=== PATIENT | male | born 1965 | race Caucasian/White ===

== ENCOUNTER 2016-11-05 05:54 | Day surgery (SDC) | payer OTHER ==
[~2016-11-05] VITALS: Ht 170.2 cm; Wt 79.5 kg
[~2016-11-05 05:54] MED LIST: ASPI-1093 PO; ATOR20TA86 PO; CLOP75 PO; FentaNYL CITRATE-PF 100 MCG/2 ML VIAL IVP ONE; HYDR25TA PO; LISI-662 PO; METF500T4 PO; MIDAZOLAM HCL 2 MG/2 ML VIAL IVP ONE; NITR.4 SL
[2016-11-05] MEDS ORDERED: DICLOFENAC SODIUM 0.1% 2.5 ML OPHTHALMIC SOLUTION ONE (06:07)
[2016-11-05] MEDS ORDERED: TROPICAMIDE 1% 2 ML OPHTHALMIC SOLUTION ONE (06:08)
[2016-11-05] MEDS ORDERED: PHENYLEPHRINE HCL 2.5% 2 ML OPHTHALMIC SOLUTION ONE (06:08)
[2016-11-05] MEDS ORDERED: TETRACAINE HCL 0.5% 2 ML OPHTHALMIC SOLUTION ONE (06:08)
[2016-11-05] MEDS ORDERED: GATIFLOXACIN 0.5% 2.5 ML OPHTHALMIC SOLUTION ONE (06:08)
[2016-11-05] MEDS ORDERED: RINGERS SOLUTION,LACTATED 500 ML IV ONE ×2 (06:09→06:45)
[2016-11-05] MEDS ORDERED: ACETAMINOPHEN 325 MG TABLET PO PRN (06:15)
[2016-11-05] MEDS ORDERED: TETRACAINE HCL 0.5% 2 ML OPHTHALMIC SOLUTION OS ONE ×2 (06:15→16:45)
[2016-11-05 06:51] LABS: GLUCOSE,POINT OF CARE 145 MG/DL (70-110)
[2016-11-05] MEDS: DICLOFENAC SODIUM 0.1% 2.5 ML OPHTHALMIC SOLUTION OS SCH ×2 (07:01→07:15)
[2016-11-05] MEDS: PHENYLEPHRINE HCL 2.5% 2 ML OPHTHALMIC SOLUTION OS SCH ×3 (07:01→07:23)
[2016-11-05] MEDS: GATIFLOXACIN 0.5% 2.5 ML OPHTHALMIC SOLUTION OS SCH ×2 (07:02→07:15)
[2016-11-05] MEDS: CYCLOPENTOLATE HCL 2% 2 ML OPHTHALMIC SOLUTION OS SCH ×3 (07:04→07:19)
[2016-11-05] MEDS ORDERED: CYCLOPENTOLATE HCL 2% 2 ML OPHTHALMIC SOLUTION ONE (07:06)
[2016-11-05] MEDS ORDERED: AcetaZOLAMIDE 250 MG TABLET PO ONE (08:15)
[2016-11-05] MEDS ORDERED: AcetaZOLAMIDE 250 MG TABLET ONE (08:56)
[2016-11-05] MEDS ORDERED: HYALURONATE SOD/CHONDROITIN SOD 0.5 ML VIAL IO ONE (16:45)
[2016-11-05] MEDS ORDERED: HYALURONATE SODIUM 12 MG/ML 0.8 ML SYRINGE IO ONE (16:45)
[2016-11-05] MEDS ORDERED: EPINEPHrine 1:1,000 [1 MG/ML] AMP IVP ONE (16:45)
[2016-11-05] MEDS ORDERED: LIDOCAINE HCL/PF 1% 2 ML VIAL IM ONE (16:45)
[2016-11-05] MEDS ORDERED: TETRACAINE HCL VISCOUS 0.5% 0.6 ML OPHTHALMIC SOLUTION OS ONE (16:45)
[2016-11-05] MEDS ORDERED: BRIMONIDINE TARTRATE 0.15% 5 ML OPHTHALMIC SOLUTION OS ONE (16:45)
[2016-11-05] MEDS ORDERED: POVIDONE-IODINE 10% 15 ML SOLUTION UD TP ONE (16:45)
== END 2016-11-05 09:45 | disposition home or self-care (01) ==
LOC: SURGERY 05:54
PROVIDERS: ATTEND Ophthalmology
DX: E11.36 Type 2 diabetes mellitus with diabetic cataract (principal); H26.9 Unspecified cataract; I10 Essential (primary) hypertension; F41.9 Anxiety disorder, unspecified; Z90.49 Acquired absence of other specified parts of digestive tract; Z98.41 Cataract extraction status, right eye
CPT/HCPCS: 66984; 82962; 93005; C1780; J2250; J3010; J7120; J0171; J3490